=== PATIENT | female | born 1955 | race Caucasian/White ===

== ENCOUNTER 2022-04-29 13:08 | Emergency (ER) | payer MEDICARE, SELFPAY ==
[2022-04-29 13:09] VITALS: BP 139/75; PULSE 79; RESP 18; TEMP 36.5; O2SAT 99; BMI 34.3
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
--- NOTE | 2022-04-29 13:25 | XR_ITS ---
WS: [id number] Exam: XR chest 1V portable [id number] Date/Time of Exam: 04/29/2022 1:27 PM Reason For Exam: seizure, cp No priors. Findings: The lungs are clear and fully expanded. Costophrenic angles are sharp. No infiltrates. Bronchovascula r relief appears normal. Cardiac silhouette is unremarkable. Bony elements are intact. XR/XR chest 1V portable [id number] IMPRESSION: Unremarkable chest radiograph.
--- NOTE | 2022-04-29 13:25 | CT_ITS ---
WS: [id number] CT HEAD NONCONTRAST HISTORY: seizure, headache TECHNIQUE: Contiguous axial imaging performed through the brain in 2.5 mm imaging. Bone and soft tiss ue windows. Sagittal and coronal reformats reviewed. All CT scans at [facility] use at least one of these dose optimization techniques: automated exposure control; mA and/or kV adjustment per pa tient size (includes targeted exams where dose is matched to clinical indication); or iterative recon struction. DLP: 1226.18 mGy.cm COMPARISON: None available. No acute intracranial hemorrhage, midline shift or mass effect. No atrophy or prior infarcts or herniation. Mild small vessel ischemic disease throughout the white matter. No prior infarct. Ventricles: Normal size with no hydrocephalus. Paranasal sinuses: As visualized are clear. Mastoid air cells: Well pneumatized. Calvarium and scalp: Skull is intact with no soft tissue edema or swelling. CT/CT head wo con* [id number] IMPRESSION: 1. No acute intracranial hemorrhage or edema. 2. Mild small vessel ischemic disease.
--- NOTE | 2022-04-29 13:39 | ECG_ITS ---
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 Measurements Intervals [place] Rate: 75 P: 27 WY: 158 QRS: 15 QRSD: 89 T: 31 QT: 379 QTc: 426 Interpretive Statements SINUS RHYTHM No previous ECG available for comparison Electronically Signed On 04-29-2022 15:34:25 CDT by Raiza King M.D. [email or web address]
[2022-04-29] MEDS: sodium chloride 0.9% 1,000 ML 999 ML IV (14:15)
[2022-04-29 14:17] LABS: Basophils % 0.5 %; Eosinophils # 0.1 10^3/uL (0.0-0.8); Eosinophils % 0.9 %; Hematocrit 40.9 % (37.0-47.0); Hemoglobin 13.2 g/dL (11.5-15.3); Lymphocytes # 2.4 10^3/uL (0.8-4.8); Lymphocytes % 40.9 %; Mean Corpuscular HGB Conc 32.3 g/dL (30.0-36.0); Mean Corpuscular Volume 105.4 fl (81-99); Mean Platelet Volume 8.8 fL (7.4-10.4); Monocytes # 0.5 10^3/uL (0.2-0.9); Monocytes % 8.1 %; Neutrophils # 2.86 10^3/uL (1.8-7.7); Neutrophils % 49.1 %; Nucleated Red Blood Cells % 0 %; Platelet Count 222 10^3/cmm (130-400); Red Blood Count 3.88 10^6/uL (4.1-5.3); Red Cell Distribution Width 13.5 % (12.1-15.1); White Blood Count 5.8 10^3/uL (4.0-10.0)
--- NOTE | 2022-04-29 14:45 | PC.PHAR ---
pt states she takes care of her own medications-pt said to call [facility] and they could tell what medications she takes called [facility] at [facility] they stated they couldnt confirm or deny anything about the pt-called [facility] that had transferred pts med to [facility] [place] that had transferred to [facility] in [facility]-medications entered are what the pt and what [facility] in [facility] states they filled recently for the pt-pt states she is unsure of all of her medication allergies the allergies entered are the medications the pt states she knows she is allergic too [facility] to fax allergy list-pt states she has inhalers but is unsure what they are [facility] states they havent filled an inhaler for the pt recently
[2022-04-29 14:49] VITALS: BP 139/75; PULSE 72; RESP 18; TEMP 36.5; O2SAT 99
[2022-04-29 14:50] LABS: Acetaminophen < 5.0 ug/mL (10-30); Alanine Aminotransferase 8 U/L (0-33); Albumin Level 3.5 g/dL (3.5-5.2); Alcohol Level < 10 mg/dL (0-10); Alkaline Phosphatase 134 U/L (35-105); Anion Gap 13.8 (5-19); Aspartate Amino Transferase 10 U/L (0-32); Blood Urea Nitrogen 14 mg/dL (8-23); Calcium 9.1 mg/dL (8.5-10.5); Carbon Dioxide 24 mmol/L (22-29); Chloride 105 mmol/L (98-107); Globulin 2.8 g/dL (1.3-4.6); Glomerular Filtration Rate 55.8 mL/min (90-130); Glucose 99 mg/dL (65-115); Osmolality Calculated 289 mOsm/kg (285-295); Potassium 3.8 mmol/L (3.5-5.1); Salicylate < 0.3 mg/dL (3-10); Sodium 139 mmol/L (136-145); Thyroid Stimulating Hormone 2.51 uIU/mL (0.27-4.20); Total Bilirubin 0.4 mg/dL (0.15-1.2); Total Protein 6.3 g/dL (6.6-8.7)
[2022-04-29 15:00] VITALS: BP 139/75; PULSE 72; RESP 18; TEMP 36.5; O2SAT 99
[2022-04-29 15:16] LABS: Add Urine Microscopic? NO; Charge for UA Resulting for Rev
[2022-04-29 15:25] LABS: Bilirubin Urine Neg (Negative); Blood Urine Neg (Negative); Glucose Urine UA Norm (Normal); Ketones Urine 1+ (Negative); Leukocyte Esterase Urine Negative (Negative); Nitrate Urine Negative (Negative); Protein Urine Neg (Negative); Urine Appearance Clear (CLEAR); Urine Color Yellow (Yellow); Urobilinogen Urine Norm (Negative); pH Urine 8 (5-7)
[2022-04-29 15:32] LABS: Amphetamines Screen Urine Negative (Negative); Barbiturates Screen Urine Negative (Negative); Benzodiazepines Screen Urine Positive (Negative); Cocaine Screen Urine Negative (Negative); Opiate Screen Urine Negative (Negative); PCP Screen Urine Negative (Negative); THC Screen Urine Negative (Negative)
[2022-04-29 15:41] LABS: Prolactin 9.86 ng/mL (4.8-23.3)
[2022-04-29 16:21] VITALS: BP 122/74; PULSE 75; RESP 18; O2SAT 99
--- NOTE | 2022-05-03 11:34 | DCPLANNER ---
Addendum entered by Vangie Barrett 06/23/22 11:15: Patient did not attend appointment Addendum entered by Vangie Barrett 05/12/22 13:35: Patient has a follow up appointment scheduled for Tuesday, June 21, 2022 at 10:[address] Campo at neurology. Clinic will call patient with appointment information. Original Note: service operations manager had message to schedule a follow up appointment for patient with neurology. service operations manager sent patients information to the front office staff at neurology. Patients information will be printed and reviewed. Clinic will call patient with appointment information.
== END 2022-04-29 16:22 | disposition home or self-care (01) ==
PROVIDERS: Emergency Provider Emergency Medicine
DX: G40.409 Other generalized epilepsy and epileptic syndromes, not intractable, without status epilepticus (principal); F17.210 Nicotine dependence, cigarettes, uncomplicated; Z79.01 Long term (current) use of anticoagulants
CPT/HCPCS: 36415; 70450; 71045; 80053; 80306; 80307; 81003; 84146; 84443; 85025; 93005; 99285; J7030

== ENCOUNTER 2022-05-05 22:01 | Emergency (ER) | payer MEDICARE, SELFPAY ==
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
[2022-05-05 22:02] VITALS: BP 110/67; PULSE 67; RESP 16; TEMP 36.8; O2SAT 98; BMI 29.2
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
--- NOTE | 2022-05-05 23:22 | ED_ITS ---
Documented by User: [email or web address] Tran 05/06/22 00:24 HPI - Fall General: Chief Complaint: Fall Stated Complaint: FALL Time Seen by Provider: 05/05/22 22:17 History of Present Illness: Patient reports approximately 1:00 this afternoon she was in the parking lot of a store where she tripped on a curb and fell onto her left side into a car. She reports that she hurts from her shoulder down to her fingertips and even on the left side of her neck. She is unsure if she hit the side of her head or not. She states it all happened so fast. She does not believe that she had loss of consciousness but she is unsure of that. She reports that she went home but her pain continued to worsen. She is having headache probably a 6 on a 0-to-10 scale according to the patient. She is having some stiffness and pain with turning her neck. She has tenderness all the way down her arm from the shoulder all the way to her fingertips. She denies any chest pain or shortness of breath. Associated symptoms-after fall: Reports headache(s) (Left-sided head pain status post fall); Denies chest pain Review of Systems Const: Denies: fever(s) or chills Card: Denies: chest pain or palpitations Resp: Denies: dyspnea Musc: Reports: extremity pain (Left arm pain status post fall) Neuro: Reports: headache(s) (Left-sided head pain status post fall) [facility] ED PFSH: Medical History History of seizure disorder Social History Smoking and tobacco status: current every day smoker Physical Exam Const: COMMON NORMALS: no acute distress, patient oriented x3 and alert OTHER: Patient arrived by EMS. She is awake, alert, reports pain but otherwise in no acute distress Neck/C-Spine: OTHER: There is tenderness to the left side musculature of neck however no bony deformities, point tenderness over the cervical spine, step-offs appreciated. Resp: COMMON NORMALS: normal respiratory effort, No use of accessory muscles and clear to auscultation bilaterally AUSCULTATION: clear to auscultation bilaterally Cardio: COMMON NORMALS: regular rate, regular rhythm, S1 normal heart sound present and S2 normal heart sound present RATE: regular rate RHYTHM: regular rhythm HEART SOUNDS: S1 normal heart sound present and S2 normal heart sound present Extremity: NARRATIVE EXTREMITY EXAM: No obvious soft tissue deformities to the neck and the left shoulder. There is tenderness everywhere I palpate on the entire left upper extremity. The extremity is warm, dry, pink. Pulses are intact radial and ulnar. Exam is limited related to patient discomfort and cooperation. No obvious bony deformity there is some swelling to the left upper arm as compared to the patient's right upper arm. Bruising noted to the patient's right dorsal hand thumb. Patient does have bony deformity on the hands she relates to chronic arthritis. Neuro: COMMON NORMALS: patient oriented x3 SENSORIUM/ORIENTATION: Yes alert Course Vital Signs: Vital signs: Vital Signs Temperature 98.2 F 05/05/22 22:02 Pulse Rate 70 05/06/22 00:27 Respiratory Rate 16 05/06/22 00:27 Blood Pressure 110/67 05/05/22 22:02 Pulse Oximetry 98 05/06/22 00:27 Oxygen Delivery Me thod 05/06/22 00:27 MDM - Fall Medical Decision Making Patient arrives via EMS after sustaining a fall approximately 1:00 this afternoon patient went home and then called EMS later as she began hurting more. Complaining of left arm pain. Unsure if she hit her head or had loss of consciousness. Also complaining of neck pain. Neck pain appears to be more on the side of the neck. There is not any point tenderness or bony deformity appreciated on palpation of the cervical spine. Patient has skin avulsion to the left elbow she has bruising to the left dorsal hand thumb side. She has mild swelling to the left upper arm as compared to her right upper arm. CSM is within normal limits to the entire arm. CT head without contrast, CT neck cervical spine as well as x-rays of the shoulder, elbow, wrist with navicular view. X-ray left elbow, left humerus, left shoulder, left wrist all show no acute findings per radiology. Awaiting results of CT head and neck. Patient is currently sitting in recliner sleeping in no acute distress. Discussed patient with Dr. Nevarez. As long as CT head and cervical spine are normal will discharge patient home with flexeril (she reports tolerating this med before) to help with muscle spasm. Advised patient on possible benefits and side effects of this medication. Do not drive after taking this medication. We discussed conservative treatments at home including ice, rest, elevation of the extremity. Gentle stretches. We discussed the typical course of healing for an injury/contusion.. We discussed red flags for worsening and needing to monitor closely given that she takes Coumadin medication. If she noticed any neurologic changes, increased sleepiness, dizziness, changes in vision, increased headache she should be evaluated in the emergency department immediately. Follow-up with primary care provider. Return to the ER for any new or worsening symptoms. Lab Data Radiology Impressions Cervical Spine CT 05/05/22 00:00 IMPRESSION: 1. No evidence of acute fracture or acute traumatic subluxation. 2. Postoperative changes at C5-C6 and C6-C7 as described above. 3. Incomplete closure of the posterior elements are C1, anatomic variant. Head CT 05/05/22 22:23 IMPRESSION: No acute intracranial findings. Elbow X-Ray 05/05/22 22:26 IMPRESSION: No acute findings. Humerus X-Ray 05/05/22 22:26 IMPRESSION: No acute findings. Shoulder X-Ray 05/05/22 22:26 IMPRESSION: No acute findings. Wrist X-Ray 05/05/22 22:26 IMPRESSION: No acute findings. Discharge Plan Discharge Patient Disposition: Home Clinical Impression: Fall, Contusion Condition: Stable Prescriptions: New cyclobenzaprine 10 mg tablet 10 mg PO TID PRN (Reason: muscle spasm) Qty: 10 0RF No Action Lamictal 200 mg Tablet 200 mg PO QAM warfarin 3 mg Tablet 3 mg PO QAM lorazepam 0.5 mg Tablet 0.5 mg PO TID Percocet 10-325 mg Tablet 1 tab PO QID PRN (Reason: Pain) metoprolol succinate 25 mg Tablet Extended Release 24 Hr 25 mg PO QAM Topamax 100 mg Tablet 200 mg PO BID Wellbutrin XL 150 mg Tablet Extended Release 24 Hr 150 mg PO QAM Discharge Orders: Discharge ED (Routine); Ordered 05/06/22 Ordered By: Afia Nevarez Discharge Diet: Usual diet Discharge Activity: Increase activity as tolerated Patient Instructions: Contusion in Adults (ED) Activity Restrictions/Additional Instructions: Use flexeril as directed as needed for muscle spasm and pain. Be careful not to take this medication with any other medications that make you sleepy. Do not drive after taking this medication. Your imaging today did not show any acute fractures or injuries. Follow-up with your primary care provider as needed. Return to the ER for any new or worsening symptoms. Coding Level of Care Code ED Intermediate Project Manager for Chg Fwd Exam Expanded Problem Focused Documented by User: Afia Nevarez MD 05/06/22 00:33 HPI - Fall General: Chief Complaint: Fall Stated Complaint: FALL Time Seen by Provider: 05/05/22 22:17 [facility] ED PFSH: Medical History History of seizure disorder Social History Smoking and tobacco status: current every day smoker Course Vital Signs: Vital signs: Vital Signs Temperature 98.2 F 05/05/22 22:02 Pulse Rate 70 05/06/22 00:27 Respiratory Rate 16 05/06/22 00:27 Blood Pressure 110/67 05/05/22 22:02 Pulse Oximetry 98 05/06/22 00:27 Oxygen Delivery Me thod 05/06/22 00:27 MDM - Fall Medical Decision Making Patient arrives via EMS after sustaining a fall approximately 1:00 this afternoon patient went home and then called EMS later as she began hurting more. Complaining of left arm pain. Unsure if she hit her head or had loss of consciousness. Also complaining of neck pain. Neck pain appears to be more on the side of the neck. There is not any point tenderness or bony deformity appreciated on palpation of the cervical spine. Patient has skin avulsion to the left elbow she has bruising to the left dorsal hand thumb side. She has mild swelling to the left upper arm as compared to her right upper arm. CSM is within normal limits to the entire arm. CT head without contrast, CT neck cervical spine as well as x-rays of the shoulder, elbow, wrist with navicular view. X-ray left elbow, left humerus, left shoulder, left wrist all show no acute findings per radiology. Awaiting results of CT head and neck. Patient is curre ntly sitting in recliner sleeping in no acute distress. Discussed patient with Dr. Nevarez. As long as CT head and cervical spine are normal will discharge patient home with flexeril (she reports tolerating this med before) to help with muscle spasm. Advised patient on possible benefits and side effects of this medication. Do not drive after taking this medication. We discussed conservative treatments at home including ice, rest, elevation of the extremity. Gentle stretches. We discussed the typical course of healing for an injury/contusion.. We discussed red flags for worsening and needing to monitor closely given that she takes Coumadin medication. If she noticed any neurologic changes, increased sleepiness, dizziness, changes in vision, increased headache she should be evaluated in the emergency department immediately. Follow-up with primary care provider. Return to the ER for any new or worsening symptoms. I reviewed case with midlevel did review films as well I agree with her history and physical patient is stable for discharge at this time Lab Data Radiology Impressions Cervical Spine CT 05/05/22 00:00 IMPRESSION: 1. No evidence of acute fracture or acute traumatic subluxation. 2. Postoperative changes at C5-C6 and C6-C7 as described above. 3. Incomplete closure of the posterior elements are C1, anatomic variant. Head CT 05/05/22 22:23 IMPRESSION: No acute intracranial findings. Elbow X-Ray 05/05/22 22:26 IMPRESSION: No acute findings. Humerus X-Ray 05/05/22 22:26 IMPRESSION: No acute findings. Shoulder X-Ray 05/05/22 22:26 IMPRESSION: No acute findings. Wrist X-Ray 05/05/22 22:26 IMPRESSION: No acute findings. Discharge Plan Discharge Patient Disposition: Home Clinical Impression: Fall, Contusion Condition: Stable Prescriptions: New cyclobenzaprine 10 mg tablet 10 mg PO TID PRN (Reason: muscle spasm) Qty: 10 0RF No Action Lamictal 200 mg Tablet 200 mg PO QAM warfarin 3 mg Tablet 3 mg PO QAM lorazepam 0.5 mg Tablet 0.5 mg PO TID Percocet 10-325 mg Tablet 1 tab PO QID PRN (Reason: Pain) metoprolol succinate 25 mg Tablet Extended Release 24 Hr 25 mg PO QAM Topamax 100 mg Tablet 200 mg PO BID Wellbutrin XL 150 mg Tablet Extended Release 24 Hr 150 mg PO QAM Discharge Orders: Discharge ED (Routine); Ordered 05/06/22 Ordered By: Afia Nevarez Discharge Diet: Usual diet Discharge Activity: Increase activity as tolerated Patient Instructions: Contusion in Adults (ED) Activity Restrictions/Additional Instructions: Use flexeril as directed as needed for muscle spasm and pain. Be careful not to take this medication with any other medications that make you sleepy. Do not drive after taking this medication. Your imaging today did not show any acute fractures or injuries. Follow-up with your primary care provider as needed. Return to the ER for any new or worsening symptoms. Coding Level of Care Code ED Intermediate Project Manager for [employer] Exam Expanded Problem Focused
[2022-05-06 00:27] VITALS: PULSE 70; RESP 16; O2SAT 98
--- NOTE | 2022-05-06 00:27 | PC.NURSE ---
TELFA DRESSING APPLIED, COVERED WITH COBAN TO LEFT ELBOW.
[2022-05-06 00:43] VITALS: PULSE 70; RESP 16; O2SAT 98
== END 2022-05-06 00:45 | disposition home or self-care (01) ==
PROVIDERS: Emergency Provider Emergency Medicine
DX: S60.222A Contusion of left hand, initial encounter (principal); S51.002A Unspecified open wound of left elbow, initial encounter; Z79.01 Long term (current) use of anticoagulants; F17.210 Nicotine dependence, cigarettes, uncomplicated; W18.09XA Striking against other object with subsequent fall, initial encounter
CPT/HCPCS: 70450; 72125; 73030; 73060; 73070; 73110; 99284

== ENCOUNTER 2022-05-07 08:36 | Emergency (ER) | payer MEDICARE, SELFPAY ==
[2022-05-07 08:38] VITALS: BP 146/77; PULSE 70; RESP 16; TEMP 36.5; O2SAT 100; BMI 38.5
--- NOTE | 2022-05-07 08:39 | XRR_ITS ---
PROCEDURE INFORMATION: Exam: XR Left Elbow Exam date and time: 05/07/2022 8:46 AM Age: 66 years old Clinical indication: Pain; Elbow; Left; Additional info: Fall TECHNIQUE: Imaging protocol: Radiologic exam of the Left elbow. Views: 3 or more views. COMPARISON: CR (UP EX, ) 05/05/2022 10:52 PM FINDINGS: Bones/joints: No acute fracture or malalignment. Joint spaces are maintained. No joint effusion. Soft tissues: Normal. XR/XR elbow LT min 3V* [id number] IMPRESSION: No acute fracture or malalignment.
--- NOTE | 2022-05-07 08:39 | XRR_ITS ---
PROCEDURE INFORMATION: Exam: XR Left Foot Exam date and time: 05/07/2022 8:46 AM Age: 66 years old Clinical indication: Pain; Foot; Left; Prior surgery; Surgery date: 6+ months; Additional info: Fall TECHNIQUE: Imaging protocol: Radiologic exam of the Left foot. Views: 3 or more views. COMPARISON: No relevant prior studies available. FINDINGS: Bones/joints: No acute fracture or malalignment. Moderate 1st MTP joint degenerative changes. Mild midfoot degenerative changes. Soft tissues: There is a linear 1.1 cm radiopaque density between the 2nd and 3rd metatarsals, which may reflect a foreign body. XR/XR foot LT min 3V* [id number] IMPRESSION: 1. No acute fracture or malalignment. 2. There is a linear 1.1 cm radiopaque density between the 2nd and 3rd metatarsals, which may reflect a foreign body.
--- NOTE | 2022-05-07 08:41 | W.ED.TRAUMA ---
HPI - Trauma General: Chief Complaint: Extremity Problem,Nontraumatic Stated Complaint: LEFT ANKLE AND ARM PAIN S/P FALL Time Seen by Provider: 05/07/22 08:39 Source: patient and EMS Mode of arrival: EMS Limitations: no limitations History of Present Illness: 66-year-old female who had a fall 2 days ago ground-level fall she states that she has left elbow pain from a fall she states she been having increasing pain in her left foot. She does have some redness to her left great toe states it is very painful to touch she does have a history of gout rates her pain a 6 out of 10 denies any other injuries. Associated symptoms: Denies abdominal pain, chest pain, chills, dental pain, fever(s), headache(s), nausea or vomiting Review of Systems Const: Denies: fever(s), chills, body aches or change in appetite Eyes: Denies: blurry vision or eye discomfort ENMT: Denies: throat pain or dental pain Card: Denies: chest pain Resp: Denies: dyspnea GI: Denies: abdominal pain, nausea, vomiting or diarrhea : Denies: dysuria Musc: Reports: extremity pain Skin/Breast: Denies: rash Neuro: Denies: headache(s) Psych: Denies: depression Refugio/Lymph: Denies: easy bruising All/Imm: Denies: urticaria PFS ED PFSH: Medical History History of seizure disorder Social History Smoking and tobacco status: current every day smoker Physical Exam Const: COMMON NORMALS: no acute distress, patient oriented x3 and healthy appearing HENMT: COMMON NORMALS: normocephalic and atraumatic HEAD & SCALP: normocephalic and atraumatic Eye: COMMON NORMALS: Equal, round and reactive pupils present and EOMs intact bilaterally PUPIL: Yes Equal, round and reactive pupils present Neck/C-Spine: COMMON NORMALS: full ROM and supple Chest: COMMONS NORMALS: normal inspection of the chest and normal palpation of entire chest wall Resp: COMMON NORMALS: normal respiratory effort, No retractions, No use of accessory muscles and clear to auscultation bilaterally AUSCULTATION: clear to auscultation bilaterally Cardio: COMMON NORMALS: regular rate, regular rhythm and No murmurs present (Cardio) RATE: regular rate RHYTHM: regular rhythm GI: COMMON NORMALS: Normal to inspection, nondistended, normoactive bowel sounds present, Soft to palpation, non-tender and no masses PALPATION: Yes Soft to palpation Extremity: COMMON NORMALS: full ROM NARRATIVE EXTREMITY EXAM: Tenderness to the left great toe with some redness appearance of gout she has pain in her left elbow exam is benign of the elbow Neuro: COMMON NORMALS: patient oriented x3, moves all extremities and no focal motor deficits Psych: COMMON NORMALS: mental status grossly normal, Normal thought process present and cooperative THOUGHT PROCESS: Normal thought process present Skin: COMMON NORMALS: no rashes or lesions noted and no wounds GENERAL SKIN EXAM: no rashes or lesions noted Course Vital Signs: Vital signs: Vital Signs Temperature 97.7 F 05/07/22 09:25 Pulse Rate 70 05/07/22 09:25 Respiratory Rate 16 05/07/22 09:25 Blood Pressure 146/77 05/07/22 09:25 Pulse Oximetry 100 05/07/22 09:25 Oxygen Delivery Me thod 05/07/22 08:38 MDM - Trauma Medical Decision Making Patient presents with foot pain likely gout we will start on colchicine he is to follow-up PCP and return if worsening. Discharge Plan Discharge Patient Disposition: Home Clinical Impression: Gout Condition: Stable Prescriptions: New colchicine 0.6 mg tablet 0.6 mg PO BID Qty: 8 0RF No Action Lamictal 200 mg Tablet 200 mg PO QAM warfarin 3 mg Tablet 3 mg PO QAM lorazepam 0.5 mg Tablet 0.5 mg PO TID Percocet 10-325 mg Tablet 1 tab PO QID PRN (Reason: Pain) metoprolol succinate 25 mg Tablet Extended Release 24 Hr 25 mg PO QAM Topamax 100 mg Tablet 200 mg PO BID Wellbutrin XL 150 mg Tablet Extended Release 24 Hr 150 mg PO QAM cyclobenzaprine 10 mg tablet 10 mg PO TID PRN (Reason: muscle spasm) Qty: 10 0RF Discharge Orders: Discharge ED (Routine); Ordered 05/07/22 Ordered By: Afia Nevarez Discharge Diet: Advance as tolerated Discharge Activity: Resume usual activity Patient Instructions: Gout (ED) Coding Level of Care Code ED [employer] for Chg Fwd Exam Comprehensive
[2022-05-07 09:25] VITALS: BP 146/77; PULSE 70; RESP 16; TEMP 36.5; O2SAT 100
== END 2022-05-07 09:26 | disposition home or self-care (01) ==
PROVIDERS: Emergency Provider Emergency Medicine
DX: M10.9 Gout, unspecified (principal); F17.200 Nicotine dependence, unspecified, uncomplicated
CPT/HCPCS: 73080; 73630; 99283